=== PATIENT | female | born 1980 | race Caucasian/White ===

== ENCOUNTER → 2016-05-18 | Outpatient (CLI) | payer BC ==
[2016-05-18 16:00] LABS: BILIRUBIN,TOTAL 0.3 mg/dL (0.3-1.2); TOTAL PROTEIN 7.5 g/dL (6.1-8.0)
== END ==
LOC: LAB 15:18
PROVIDERS: ATTEND Obstetrics & Gynecology
DX: K76.9 Liver disease, unspecified (principal)
CPT/HCPCS: 36415; 80076

== ENCOUNTER → 2016-07-22 | Outpatient (CLI) | payer BC ==
[2016-07-22 12:32] LABS: SERUM ALBUMIN 4.3 g/dL (3.5-4.8)
== END ==
LOC: LAB 11:48
PROVIDERS: ATTEND Obstetrics & Gynecology
DX: K76.0 Fatty (change of) liver, not elsewhere classified (principal); E34.9 Endocrine disorder, unspecified
CPT/HCPCS: 36415; 80076

== ENCOUNTER 2018-03-18 18:09 | Observation (INO) ==
[2018-03-18] MEDS ORDERED: PANTOPRAZOLE IV 40 MG VIAL IVP ONE (18:40)
[2018-03-18] MEDS ORDERED: ONDANSETRON 4 MG/2 ML VIAL IVP ONE (18:40)
[2018-03-18] MEDS ORDERED: Sodium Chloride 0.9% 1,000 ML PRIMARY IV ONE ×2 (18:40→21:20)
[2018-03-18] MEDS ORDERED: MORPHINE SULFATE 4 MG/1 ML IVP ONE ×2 (18:42→21:14)
[2018-03-18] MEDS ORDERED: GLUCAGON EMERGENCY KIT 1 MG KIT IVP ONE (18:46)
[2018-03-18 18:56] LABS: BASOPHILS # (AUTO) 0.01 10*3/UL; BASOPHILS % (AUTO) 0.2 % (0-1); EOSINOPHILS # (AUTO) 0.12 10*3/UL; EOSINOPHILS % (AUTO) 2.1 % (0-8); Hematocrit [HCT] 42.6 % (37.0-47.0); Hemoglobin [HGB] 14.4 g/dL (12.0-16.0); LYMPHOCYTES # (AUTO) 2.37 10*3/uL; MEAN CORPUSCULAR HEMOGLOBIN 30.9 PG (27-31); MEAN CORPUSCULAR HGB CONC 33.8 g/dL (33-37); MEAN CORPUSCULAR VOLUME 91.4 FL (81-99); MEAN PLATELET VOLUME 11.2 FL (7.4-12.2); MONOCYTES # (AUTO) 0.36 10*3/UL (0.3-0.8); MONOCYTES % (AUTO) 6.3 % (5-15); NEUTROPHILS # (AUTO) 2.88 10*3/UL; RED BLOOD COUNT 4.66 10^6/uL (4.20-5.40)
[2018-03-18 18:58] LABS: PLATELET MORPHOLOGY COMMENT NORMAL MORPHOLOGY (NORM); RBC MORPHOLOGY COMMENT NORMAL MORPHOLOGY (NORM); WBC MORPHOLOGY COMMENT NORMAL MORPHOLOGY (NORM)
[2018-03-18 19:07] LABS: BLOOD UREA NITROGEN 18 mg/dL (7-22); BUN/CREATININE RATIO 25.71 (6-20); SERUM ALBUMIN 4.5 g/dL (3.5-4.8)
[2018-03-18 19:45] LABS: LIPASE 177 IU/L (23-300)
[2018-03-18] MEDS ORDERED: PROMETHAZINE 25 MG/1 ML VIAL IM ONE (20:12)
--- NOTE | 2018-03-18 21:04 | DI ---
EXAM: CT Abdomen and Pelvis With Intravenous Contrast CLINICAL HISTORY: ITS.REASON epigastric pain Physician Notes: Tech Comments: TECHNIQUE: Axial computed tomography images of the abdomen and pelvis with intravenous contrast. Coronal and sagittal reformatted images were created and reviewed. COMPARISON: 05/31/2017 FINDINGS: Lung bases: Unremarkable. No mass. No consolidation. ABDOMEN: Liver: 4 mm hypodense lesion in the right hepatic lobe near the dome, favoring cyst. Scattered hepatic granulomas are present. Small hemangioma is noted within the periphery of the right hepatic lobe inferiorly measuring 13 mm. Gallbladder and bile ducts: Cholecystectomy with associated biliary ectasia. No ductal dilation. Pancreas: Unremarkable. No mass. No ductal dilation. Spleen: Splenic granuloma. Adrenals: Unremarkable. No mass. Kidneys and ureters: No hydronephrosis or large calcified renal stones. Subtle, ill-defined cortical cysts are again noted, too small to characterize measuring up to 4 mm in the left lower pole. Stomach and bowel: Postsurgical changes to the stomach. No significant wall thickening or surrounding inflammatory changes. No evidence for bowel obstruction or definitive focal inflammation. A few nonspecific small bowel fluid levels are noted distally which may be transient. PELVIS: Appendix: No findings to suggest acute appendicitis. Bladder: Unremarkable. No mass. Reproductive: Hysterectomy. ABDOMEN and PELVIS: Intraperitoneal space: Unremarkable. No free air. No significant fluid collection. Bones/joints: L5-S1 degenerative disc changes with moderate height loss and osteophytosis. Mild endplate sclerotic changes. No acute fracture. No dislocation. Soft tissues: Subcutaneous scarring anteriorly. Vasculature: No acute findings. Lymph nodes: Unremarkable. No enlarged lymph nodes. IMPRESSION: 1. A few nonspecific distal small bowel fluid levels are likely transient though mild ileus or enteritis could be considered in the appropriate clinical setting.
[2018-03-18] MEDS ORDERED: MORPHINE SULFATE 4 MG/1 ML IVP PRN (22:58)
[2018-03-18] MEDS ORDERED: ONDANSETRON 4 MG/2 ML VIAL IVP PRN (22:58)
[2018-03-19] MEDS: Lactated Ringers 1,000 ML PRIMARY IV SCH ×2 (01:04→09:54)
--- NOTE | 2018-03-19 03:29 | PDOC ---
Nausea/Vomiting/Diarrhea HPI - General Chief Complaint: Nausea / Vomiting / Diarrhea Stated Complaint: FEELS LIKE FOOD IS STUCK, AB PAIN, CHEST PRESSURE Date Seen by Provider: 03/18/18 Time Seen by Provider: 18:30 Source: POSITIVE: Patient Exam Limitations: POSITIVE: No limitations Nurse's Notes Reviewed & Considered: Yes - History of Present Illness Initial Comments: The patient is a 37-year-old female. She states that for the past 24 hours, approximately, she has had this sensation of "food getting stuck" in her distal esophagus. She states that she also has pain over the epigastrium and distal esophagus when she tries to swallow solids or liquids. She's not had any vomiting. She had a gastric sleeve procedure done this past August. She also complains of nausea. No diarrhea, melena, hematochezia, dysuria or hematuria. No known fevers. She's had a hysterectomy and a cholecystectomy. She states that her symptoms started after lunch yesterday. She complains of "sharp burning" pain in the subxiphoid and epigastric area when she swallows liquids or solids. Body Location Affected: REPORTS: Abdomen Timing: REPORTS: Constant Duration: >24 hours (Approximately 30 hours) Severity: Moderate Quality: REPORTS: Burning (Subxiphoid area and epigastrium), "Pain", Sharpness, Stabbing Abdominal Pain Onset Location: REPORTS: Epigastric, Other (Subxiphoid and distal substernal area) Abdominal Pain Radiation: REPORTS: No radiation Context: REPORTS: Other (Exacerbated by swallowing food or liquid) Modifying Factors: improves with: Nothing Associated Symptoms: REPORTS: Epigastric Pain Similar Symptoms Previously: No Recent Care Received: REPORTS: Denies Any Prior Injuries Related to Current Complaint?: No - Patient Home Medications Home Medications: Home Medications paroxetine ER 25 mg tablet,extended release 24 hr 50 mg PO QAM tab 04/11/17 Gabapentin 600 mg PO DAILY 01/26/18 Buspirone HCl 10 mg PO DAILY 03/18/18 - Patient Allergies Allergies/Adverse Reactions: Allergies Allergy/AdvReac Type Severity Reaction Status Date / Time hydrocodone AdvReac SHORTNESS Verified 03/18/18 18:19 OF BREATH Past Medical History - heen HEENT History: Denies History Cardiovascular History: Denies History Respiratory History: Denies History, Shortness of Breath, Pneumonia Additional Respiratory History: had pna in march Gastrointestinal History: Gallbladder Disease, Other (please comment) Additional Gastrointestinal History: REPORTS 4TH DEGREE RECTAL TEAR DURING CHILDBIRTH AND HAD ANAL SPHINCTOR REPAIR ON 11/01/11. *IN 05/05/12 had a percutaneous liver biopsy that revealed benign HEPATIC ADENOMAS. REMOVED 2013,. GB REMOVED Genitourinary History: Kidney Stones Additional Genitourinary History: DX'D WITH KIDNEY STONES/ INFECTION AND UTI Endocrine History: Hypothyroidism Additional Endocrine History: resolved in 2013 Musculoskeletal History: Back Pain Prosthesis or Implant: No Neurological History: Denies History Blood Disorders: Denies History Psychiatric History: Depression, Anxiety Disorders History of Sexually Transmitted Diseases: No Obstetrical History: Delivery Cancer History: Denies History In Past Year Been Physically Harmed or Verbally Threatened: No History of MDRO: No History of Other Communicable Diseases: No Tobacco Use: Current Every Day Smoker Alcohol Use: Rarely In the Past 12 Months, Have Used or Abuse Any Substance: None Previous Surgical History: Yes Type / Date of Surgery: CHOLECYSTECTOMY 2001, C-SCTION 2005, SPHINCTER REPAIR 2011, FULL HYSTERECTOMY 2012, HEPATIC ADENOMAS 2013, ovarian cyst removal mar 2017 Anesthesia Reactions: No Malignant Hyperthermia: No Significant Family History: No pertinent family hx Past Medical History Reviewed: Reviewed - No Changes ROS - Limitations ROS Limitations: No Limitations Constitution: REPORTS: Denies Symptoms Cardiovascular: REPORTS: Denies Cardiac Symptoms Respiratory: REPORTS: Denies Resp Symptoms Neurological: REPORTS: Denies Neuro Symptoms Gastrointestinal: REPORTS: Abdominal Pain, Nausea Endocrine: REPORTS: Denies Symptoms Musculoskeletal: REPORTS: Denies MS Symptoms Genitourinary: REPORTS: Denies Symptoms Eyes: REPORTS: Denies Symptoms ENT: REPORTS: Denies Symptoms Skin: REPORTS: Denies Skin Symptoms Lympathic: REPORTS: Denies Lympathic Symptoms Immunologic: POSITIVE: Denies Symptoms Psychiatric: POSITIVE: Denies Psych Symptoms Nausea/Vomiting/Diarrhea Exam - General Appearance General Appearance: POSITIVE: Alert, Cooperative, No Evidence of Trauma, Mild Distress. NEGATIVE: No Acute Distress - HEENT HEENT: POSITIVE: Head Inspection Nml, Eyes Inspection Nml, Ears Inspection Nml, Nose Inspection Nml, Oral/Dental Inspect. Nml, Pharynx Inspect. Nml, PERRL, EOMI - Neck Neck: POSITIVE: Supple, Normal Inspection, Non Tender - Respiratory Respiratory: POSITIVE: No Respiratory Distress, Breath Sounds Normal, Chest Non- Tender - Cardiovascular Cardiovascular: POSITIVE: Regular Rate and Rhythm, Heart Sounds Normal, Equal Pulses, Strong Pulses Peripheral Pulses: Radial (L): 2+, Femoral (R): 2+ - Abdomen Abdomen: Soft: (All Quadrants), Normal Bowel Sounds: (All Quadrants), Denies Tenderness: (RUQ), (LUQ) (epigastrium), No Splenomegaly: (All Quadrants), No Hepatomegaly: (All Quadrants), No Guarding: (All Quadrants), No Rebound: (All Quadrants), No Palpable Pulse: (All Quadrants), No Palpabale Mass: (All Quadrants), No Distention: (All Quadrants), No Rigidity: (All Quadrants) Additional Abdominal Details: Abdominal examination shows bowel sounds to be present. Patient complains of pain on direct palpation over the epigastrium and the subxiphoid area. No masses, organomegaly or rebound. Patient was observed to take a drink water which she states exacerbated her pain. She had no vomiting or regurgitation. - Back Back: POSITIVE: Normal Inspection - Skin Skin: POSITIVE: Intact, Normal For Race, Warm, Dry, No Rash - Extremities Extremity: Non-Tender: (All Extremities), Normal ROM: (All Extremities), Normal Inspection: (All Extremities) - Neurological / Psychological Neurological: POSITIVE: Affect Apporpriate, Oriented X3, vp rheumatology Normal As Tested, Motor Normal, Sensation Normal Images - Complete Complete: 1 - Area of pain N/V/D Progress - Results Reviewed by me Xrays/CTs/US Reviewed by me: Yes Discussed with Radiologist: Yes Radiology Findings: CT scan abdomen and pelvis with IV contrast shows "a few nonspecific distal small bowel fluid levels ". Otherwise negative. Lab Results Reviewed by Me: Yes CBC and BMP: 03/18/18 18:40 03/18/18 18:40 Lab Results:: Laboratory Results 03/18/18 03/18/18 03/18/18 18:40 18:40 19:38 WBC 5.75 RBC 4.66 Hgb 14.4 Hct 42.6 MCV 91.4 MCH 30.9 MCHC 33.8 RDW Std Deviation 41.1 RDW Coeff of Zenon 12.7 Plt Count 217 MPV 11.2 Immature Gran % (Auto) 0.2 Neut % (Auto) 50.0 Lymph % (Auto) 41.2 Bacon % (Auto) 6.3 Eos % (Auto) 2.1 Baso % (Auto) 0.2 Immature Gran # (Auto) 0.01 Neut # (Auto) 2.88 Lymph # (Auto) 2.37 Bacon # (Auto) 0.36 Eos # (Auto) 0.12 Baso # (Auto) 0.01 WBC Morphology Comment Normal morphology Plt Morphology Comment Normal morphology RBC Morph Comment Normal morphology Sodium 140 Potassium 3.7 L Chloride 107 Carbon Dioxide 26 Anion Gap 7 BUN 18 Creatinine 0.7 Estimated GFR > 60 BUN/Creatinine Ratio 25.71 H Glucose 102 Calculated Osmolality 291.0 Calcium 9.4 Total Bilirubin 0.5 AST 35 ALT 34 Alkaline Phosphatase 99 Total Protein 7.5 Albumin 4.5 Globulin 3.0 Albumin/Globulin Ratio 1.50 Amylase 36 Lipase 177 - Patient's Progress Pain Medication Addressed: POSITIVE: Yes (Patient medicated with morphine sulfate for pain. Patient also given Zofran IV and later Phenergan IM for nausea. She was also given 40 mg of Protonix and a milligram of glucagon.) School/Work Release Addressed: POSITIVE: Not Applicable Re-examine Time: 21:00 Re-Examine Comment: Results of radiologic and laboratory evaluation discussed with patient. Patient states that she is still having considerable pain, despite morphine. She also complains of persistent nausea. I think this lady's symptoms are most compatible with ulcers or esophagitis. Case discussed with Dr. Morris, surgeon, who will come to the emergency room to further evaluate and treat. Believe patient needs a EGD. Status: POSITIVE: Unchanged, Re-Examined - Consult Consult (If Yes, Name of Consulting MD & Time Called): Yes (, surgeon, [id number] ) Consulting MD will see pt:: POSITIVE: In ED, [facility] [place]mit Counseled: POSITIVE: Patient, RE: Lab Results, RE: Radiology Results, RE: DX, RE: Need for F/U Patient Care Time - Estimated PCT Patient Care Time (In Minutes): 50 Vital Signs - VS Reviewed Vital Signs Reviewed: Yes Discharge Clinical Impression: Abdominal pain Discharge Disposition: Admit to Inpatient Condition: Good Date Decision to Admit to Inpatient: 03/18/18 Time Decision to Admit to Inpatient: 21:30
[2018-03-19] MEDS ORDERED: Sodium Chloride 0.9% 1,000 ML PRIMARY IV ONE (06:00)
[2018-03-19] MEDS ORDERED: PROPOFOL 10 MG/1 ML (200 MG/20 ML) VIAL IV ONE (08:33)
--- NOTE | 2018-03-19 09:01 | GEN.OPNOTE ---
EGD Operative Note Surgery Date: 03/19/18 Procedure: Esophagogastroduodenoscopy with biopsy Surgeon: Moi Maynard Anesthesia Provider: Shannan Reich CRNA Anesthesia Type: MAC Indications: 37 y.o. who presented with intractable nausea and epigastric pain Findings: Esophagus: [Esophagitis] GE Junction : [normal] Fundus : [s/p sleeve] Body : [s/p sleeve] Prepyloric : [normal] Small Intestine : [normal] A lubricated flexible upper endoscope was inserted and passed through the esophagus and stomach into the duodenum. Estimated Blood Loss (mL): 1 Complications: None
[2018-03-19] MEDS ORDERED: Lactated Ringers 1,000 ML PRIMARY IV SCH (09:09)
[2018-03-19] MEDS ORDERED: ONDANSETRON 4 MG/2 ML VIAL IVP PRN (09:09)
--- NOTE | 2018-03-19 09:13 | CRNA.PROGR ---
Anesthesia Time - Procedure/Recovery Time Start Date: 03/19/18 End Date: 03/19/18 Anesthesia : Time In: 08:38 Anesthesia : Time Out: 08:57 Anesthesia : Total Time: 19 - Total Anesthesia Time Total Anesthesia Time (minutes): 19 - Other Weight: 89.811 kg Height: 5 ft 4.5 in Body Mass Index (BMI): 33.4 Physical Status: P2 (Tobacco) Anesthesia Type: MAC
--- NOTE | 2018-03-19 09:13 | CRNA.PROGR ---
Post Anesthesia Phase II - Post Anesthesia Phase II Patient Stable and Discharged To: Med/Surg Care Assumed By Surgeon: Other Temperature: 97 F Pulse Rate: 73 Respiratory Rate: 12 Blood Pressure: 101/72 Pulse Ox: 97 Total Toño Score at Discharge: 9 Post Anesthesia Discharge Criteria Met: Yes
[2018-03-19] MEDS ORDERED: PARoxetine Tab 20 MG TAB PO SCH (09:15)
[2018-03-19] MEDS ORDERED: PAROXETINE HCL PO SCH (09:15)
[2018-03-19] MEDS: MORPHINE SULFATE 4 MG/1 ML IVP PRN ×2 (10:11→14:10)
[2018-03-19 11:46] VITALS: BP 105/58; RESP 18; TEMP 97.5; O2SAT 92
[2018-03-19] MEDS ORDERED: GABAPENTIN 600 MG PO SCH (12:00)
[2018-03-19] MEDS ORDERED: GABAPENTIN 300 MG CAPSULE PO SCH (12:00)
[2018-03-20] MEDS ORDERED: busPIRone HCL 5 MG TABLET PO SCH (09:00)
== END 2018-03-19 14:24 | disposition home or self-care (01) ==
LOC: ER 18:09 → MED/SURG 18:09 → OPS 03-19 08:29 → MED/SURG 03-19 09:02
PROVIDERS: ADMIT Surgery; ATTEND Surgery